=== PATIENT | male | born 1955 | race Caucasian/White ===

== ENCOUNTER 2018-11-02 19:38 | Inpatient (IN) | payer OTHER, MEDICAID | END 2018-11-04 12:00 | disposition home or self-care (01) | LOC: ED HOLD 23:26 → ER 19:38 → ORTHO 4S 11-03 00:35 ==

== ENCOUNTER 2018-11-08 13:22 | Emergency (ER) | payer MEDICAID, OTHER ==
[~2018-11-08] VITALS: Ht 188 cm; Wt 100.0 kg
[~2018-11-08 13:22] MED LIST: NO HOME MEDS PO
--- NOTE | 2018-11-08 15:29 | NUR ---
Pt given a urinal for UA.
[2018-11-08] MEDS ORDERED: LIDOcaine 2% 10ml TOPICAL JELLY (Urojet) MM ONE (16:05)
[2018-11-08 16:36] LABS: CLARITY,URINE CLEAR (Clear); COLOR,URINE YELLOW (Yellow); GLUCOSE, URINE NEGATIVE (Neg); KETONES,URINE NEGATIVE (Neg); LEUKOCYTE ESTERASE ,URINE NEGATIVE (Neg); NITRITES, URINE NEGATIVE (Neg); OCCULT BLOOD,URINE LARGE (Neg); PH,URINE 6.5 (4.8-8.0); PROTEIN,URINE NEGATIVE (Neg); UROBILINOGEN,URINE 0.2 E.U/dL (0.2-1.0)
[2018-11-08 16:40] LABS: UA COLLECTION TYPE NON-SPECIFIED
[2018-11-08 17:01] LABS: RBC,URINE 20-50 /HPF (0-2); SQUAMOUS EPITHELIAL CELL,UR NONE SEEN /LPF (FEW)
[2018-11-08 17:02] LABS: BACTERIA,URINE NONE SEEN /HPF (Neg); WBC,URINE NONE SEEN /HPF (0-4)
--- NOTE | 2018-11-08 17:40 | NUR ---
PT HAD 600 ML PINK URINE OUTPUT VIA SHAFFER CATHETER, NO CLOTS NOTED IN SHAFFER BAG OR TUBING. PT ASKING FOR PLAN, PUT CHART UP FOR RE-EVAL BY DR NAVARRO
[2018-11-08] MEDS ORDERED: FLO0.4C PO (18:20)
--- NOTE | 2018-11-08 18:50 | NUR ---
FC bedside drainage bad switched for leg back in preparation of dc. pt verbalied understanding of how to drain leg back.
[2018-11-08 18:58] VITALS: BP 149/106
== END 2018-11-08 19:01 | disposition home or self-care (01) ==
LOC: ER 13:23
DX: R33.9 Retention of urine, unspecified (principal); Z86.19 Personal history of other infectious and parasitic diseases; Z98.890 Other specified postprocedural states; Z91.048 Other nonmedicinal substance allergy status
CPT/HCPCS: 51702; 81001; 99284

== ENCOUNTER 2018-11-08 21:37 | Emergency (ER) | payer MEDICAID, OTHER ==
[~2018-11-08] VITALS: Ht 188 cm; Wt 85.2 kg
[~2018-11-08 21:37] MED LIST changes: +FLO0.4C PO
[2018-11-09 01:04] VITALS: BP 125/69
--- NOTE | 2018-11-09 01:04 | NUR ---
patient educated and demonstrated how to irrigate catheter with sterile ns: supplies provided
[2018-11-12] MEDS ORDERED: OPIU1SUP RC (20:28)
[2018-11-12] MEDS ORDERED: SULF1TAB49 PO (20:28)
[2018-11-12] MEDS ORDERED: CIPR-230 PO (20:37)
== END 2018-11-09 01:11 | disposition home or self-care (01) ==
LOC: ER 21:38
DX: T83.098A Other mechanical complication of other urinary catheter, initial encounter (principal); Z98.890 Other specified postprocedural states; Z88.8 Allergy status to other drugs, medicaments and biological substances; Z79.899 Other long term (current) drug therapy; Y92.89 Other specified places as the place of occurrence of the external cause
CPT/HCPCS: 99284

== ENCOUNTER 2019-09-18 06:24 | Inpatient (IN) | payer MEDICAID ==
[2019-09-18] VITALS (9 sets, daily range): BP systolic 122–143; BP diastolic 57–84
[~2019-09-18] VITALS: Ht 188 cm; Wt 107.0 kg
[~2019-09-18 06:24] MED LIST changes: -FLO0.4C PO
[2019-09-18] MEDS ORDERED: ondansetron/PF 4mg/2ml inj IV ONE (07:00)
[2019-09-18] MEDS ORDERED: normal saline 1000ML IV soln IVB ONE (07:00)
[2019-09-18 07:18] LABS: BASOPHILS # (AUTO) 0.1 X10'3 (0-0.2); BASOPHILS % (AUTO) 0.9 % (0-1); EOSINOPHILS # (AUTO) 0.2 X10'3 (0-0.9); EOSINOPHILS % (AUTO) 2.6 % (0-6); HEMOGLOBIN 13.9 g/dl (14.0-17.9); LYMPHOCYTES % (AUTO) 23.6 % (21-51); MEAN CORPUSCULAR HEMOGLOBIN 30.5 PG (27.0-31.0); MEAN CORPUSCULAR VOLUME 89.8 FL (78-98); MEAN PLATELET VOLUME 8.5 FL (7.4-10.4); MONOCYTES # (AUTO) 0.6 X10'3 (0-0.9); MONOCYTES % (AUTO) 6.8 % (2-12); NEUTROPHILS # (AUTO) 5.6 X10'3 (1.8-7.7); NEUTROPHILS % (AUTO) 66.1 % (42-75); PLATELET COUNT 197 X10'3 (140-440); RED BLOOD COUNT 4.56 X10'6 (4.70-6.10); RED CELL DISTRIBUTION WIDTH 13.8 % (11.5-14.5); WHITE BLOOD COUNT 8.5 X10'3 (4.5-11.0)
[2019-09-18] MEDS: morphine 4 MG/ML inj SYRINge IV PRN ×2 (07:24→08:10)
--- NOTE | 2019-09-18 07:29 | NUR ---
PT'S HR NOTED TO BE IN THE [place] 40'S (47-49), DR ZARAGOZA NOTIFIED
[2019-09-18 07:35] LABS: ALANINE AMINOTRANSFERASE 12 U/L (12-78); ALBUMIN 3.3 G/DL (3.4-5.0); ALBUMIN/GLOBULIN RATIO 0.9 (1.1-1.5); ALKALINE PHOSPHATASE 104 IU/L (46-116); ANION GAP 9 (8-16); ASPARTATE AMINO TRANSFERASE 19 U/L (10-37); BILIRUBIN,TOTAL 0.3 MG/DL (0.1-1.0); BLOOD UREA NITROGEN 16 MG/DL (7-18); BUN/CREATININE RATIO 13.7 (5.4-32.0); CALCIUM 8.6 MG/DL (8.5-10.1); CHLORIDE 108 MMOL/L (99-107); CREATININE 1.17 MG/DL (0.60-1.10); GLUCOSE 144 MG/DL (70-104); LIPASE 122 U/L (73-393); POTASSIUM 3.7 MMOL/L (3.5-5.1); SODIUM 141 MMOL/L (135-145); TOTAL CARBON DIOXIDE 24.2 MMOL/L (24-32); eGFR 63 ML/MIN
[2019-09-18] MEDS ORDERED: LORazepam 2 mg/ml vial IV ONE (07:50)
[2019-09-18] MEDS ORDERED: acetaminophen 325mg tablet PO PRN ×2 (08:25)
[2019-09-18] MEDS ORDERED: potassium Cl 20 mEq SR tablet PO PRN ×2 (08:25)
[2019-09-18] MEDS ORDERED: magnesium hydroxide 30ml (MOM) UD suspension PO PRN (08:25)
[2019-09-18] MEDS ORDERED: morphine 2 MG/ML inj. syringe IV PRN ×2 (08:25)
[2019-09-18] MEDS ORDERED: ondansetron/PF 4mg/2ml inj IV PRN (08:25)
[2019-09-18] MEDS ORDERED: mag hydrox/Alum hydrox/simeth 30ml oral suspension PO PRN (08:25)
[2019-09-18] MEDS ORDERED: nitroGLYCERIN 0.4mg SUBLingual tab SL PRN (08:25)
[2019-09-18] MEDS ORDERED: magnesium 2GM in 50ml NS 50 ML IV PRN (08:25)
[2019-09-18] MEDS ORDERED: acetaminophen 650mg rectal suppository RC PRN (08:25)
[2019-09-18] MEDS ORDERED: metoprolol tartrate 1mg/ml inj IV PRN (08:25)
[2019-09-18] MEDS ORDERED: aminophylline 250mg/10ml inj. IV PRN (08:25)
[2019-09-18] MEDS ORDERED: HYDROcodone/acetaminophen 10/325mg tab PO PRN (08:25)
[2019-09-18] MEDS ORDERED: magnesium 4gm in 100ml NS 100 ML IV PRN (08:25)
[2019-09-18] MEDS ORDERED: regadenoson 0.4mg/5ml syringe IV PRN (08:25)
[2019-09-18] MEDS ORDERED: diphenhydrAMINE 25mg capsule PO PRN (08:25)
[2019-09-18] MEDS ORDERED: potassium CL 10mEq/100ml bag 100 ML IV PRN ×2 (08:25)
[2019-09-18] MEDS ORDERED: HYDROcodone/acetaminophen 5mg/325mg tablet PO PRN (08:25)
[2019-09-18] MEDS ORDERED: bisacodyl 10mg suppository rectal RC PRN (08:25)
[2019-09-18] MEDS ORDERED: magnesium Cl slow-release 64mg tablet PO PRN (08:25)
[2019-09-18] MEDS ORDERED: aspirin 325mg tablet PO ONE (08:35)
[2019-09-18 08:54] LABS: HEMOGLOBIN A1C 6.2 % (4.5-6.2)
[2019-09-18] MEDS ORDERED: ACET-1008 PO (09:37)
--- NOTE | 2019-09-18 10:05 | NUR ---
Patient arrived via gurney. Alert and oriented, able to communicate needs. C/o 5/10 chest pain with deep breathing. Patient in bed, at bedside. Will continue to monitor.
[2019-09-18] MEDS: normal saline 1000ml 1,000 ML IV SCH ×2 (10:15→21:16)
[2019-09-18] MEDS ORDERED: iohexol 350MG/ML 100ml bottle IV ONE (14:51)
--- NOTE | 2019-09-18 18:25 | NUR ---
Patient in room PCU 3012. I have received report from Kamila HAMILTON and had the opportunity to ask questions and assume patient care.
[2019-09-18] MEDS: K and/or MAG REPLACEMENT MC SCH (19:34)
[2019-09-18] MEDS: heparin, porcine 5000 units/ml vial SQ SCH (19:38)
[2019-09-18] MEDS: nicotine 7mg patch - 24hr TD SCH (21:18)
[2019-09-19 02:00] VITALS: BP 126/58
[2019-09-19] MEDS: normal saline 1000ml 1,000 ML IV SCH (04:24)
[2019-09-19 05:22] LABS: BASOPHILS % (AUTO) 0.4 % (0-1); EOSINOPHILS # (AUTO) 0.1 X10'3 (0-0.9); EOSINOPHILS % (AUTO) 1.4 % (0-6); HEMATOCRIT 38.4 % (42.0-52.0); LYMPHOCYTES # (AUTO) 1.9 X10'3 (1.1-4.8); LYMPHOCYTES % (AUTO) 23.8 % (21-51); MEAN CORPUSCULAR HEMOGLOBIN 30.5 PG (27.0-31.0); MEAN CORPUSCULAR VOLUME 89.7 FL (78-98); MEAN PLATELET VOLUME 8.8 FL (7.4-10.4); MONOCYTES # (AUTO) 0.9 X10'3 (0-0.9); MONOCYTES % (AUTO) 11.6 % (2-12); NEUTROPHILS # (AUTO) 5.1 X10'3 (1.8-7.7); NEUTROPHILS % (AUTO) 62.8 % (42-75); PLATELET COUNT 170 X10'3 (140-440); RED BLOOD COUNT 4.29 X10'6 (4.70-6.10); RED CELL DISTRIBUTION WIDTH 13.9 % (11.5-14.5); WHITE BLOOD COUNT 8.1 X10'3 (4.5-11.0)
[2019-09-19 05:46] LABS: ALANINE AMINOTRANSFERASE 10 U/L (12-78); ALBUMIN 2.9 G/DL (3.4-5.0); ALBUMIN/GLOBULIN RATIO 0.8 (1.1-1.5); ALKALINE PHOSPHATASE 90 IU/L (46-116); ANION GAP 6 (8-16); ASPARTATE AMINO TRANSFERASE 14 U/L (10-37); BILIRUBIN,TOTAL 0.7 MG/DL (0.1-1.0); BLOOD UREA NITROGEN 13 MG/DL (7-18); BUN/CREATININE RATIO 11.5 (5.4-32.0); CALCIUM 8.6 MG/DL (8.5-10.1); CHLORIDE 106 MMOL/L (99-107); CHOL/HDL RATIO 4.3 (0.00-4.99); CHOLESTEROL 187 MG/DL (0-200); CREATININE 1.13 MG/DL (0.60-1.10); GLUCOSE 92 MG/DL (70-104); HDL CHOLESTEROL 43 MG/DL (35-60); LDL CHOLESTEROL 134 MG/DL (50-100); MAGNESIUM 1.6 MG/DL (1.5-2.4); PHOSPHORUS 2.9 MG/DL (2.3-4.5); POTASSIUM 3.9 MMOL/L (3.5-5.1); SODIUM 139 MMOL/L (135-145); TOTAL CARBON DIOXIDE 26.6 MMOL/L (24-32); TOTAL PROTEIN 6.6 G/DL (6.4-8.2); TRIGLYCERIDES 39 MG/DL (20-135); eGFR 66 ML/MIN
--- NOTE | 2019-09-19 06:09 | NUR ---
Problems reprioritized. Patient report given, questions answered & plan of care reviewed with Kamila HAMILTON.
[2019-09-19 06:56] VITALS: BP 120/71
[2019-09-19] MEDS: heparin, porcine 5000 units/ml vial SQ SCH (07:13)
[2019-09-19] MEDS: K and/or MAG REPLACEMENT MC SCH (07:13)
[2019-09-19] MEDS: nicotine 7mg patch - 24hr TD SCH (07:49)
[2019-09-19] MEDS ORDERED: aspirin 325mg tablet PO SCH (08:30)
[2019-09-19 11:00] VITALS: BP 118/65
--- NOTE | 2019-09-19 12:58 | NUR ---
Patient stable for discharge per MD. Discharge instructions given to patient and . No new medications. Patient refused to have follow up appointment scheduled with Dr. Hankins. PIV d/c'd catheter intact. Tele monitor removed and retuned to [facility]. All belongings sent with patient. Patient ambulated off unit without difficulty.
[2019-09-20] MEDS ORDERED: aspirin 81mg tablet.DR PO SCH (08:30)
== END 2019-09-19 12:37 | disposition home or self-care (01) | DRG 203 ==
LOC: ER 06:25 → ED HOLD 08:24 → PCU 3S 10:05 → OBSVTOIN 09-19 08:00
PROVIDERS: ADMIT Family Medicine; ATTEND Family Medicine
PROC: 4A02XM4 Measurement of Cardiac Total Activity, External Approach (ICD-10-PCS; principal; 2019-09-18)
PROC: 3E033HZ Introduction of Radioactive Substance into Peripheral Vein, Percutaneous Approach (ICD-10-PCS; 2019-09-18)
DX: R07.89 Other chest pain (principal); B19.20 Unspecified viral hepatitis C without hepatic coma; F17.210 Nicotine dependence, cigarettes, uncomplicated; G47.33 Obstructive sleep apnea (adult) (pediatric); I10 Essential (primary) hypertension; R00.1 Bradycardia, unspecified; Z80.0 Family history of malignant neoplasm of digestive organs; Z82.3 Family history of stroke; Z82.49 Family history of ischemic heart disease and other diseases of the circulatory system; Z85.528 Personal history of other malignant neoplasm of kidney; Z90.5 Acquired absence of kidney; Z88.2 Allergy status to sulfonamides; Z79.899 Other long term (current) drug therapy; Z71.6 Tobacco abuse counseling
CPT/HCPCS: 36415; 71045; 71275; 76700; 78452; 80053; 80061; 83036; 83690; 83735; 84100; 84443; 84484; 85025; 87081; 93005; 93017; 93306; 96374; 99285; A9500; G0378; J1644; J2060; J2270; J2405; J7030; Q9967

== ENCOUNTER 2020-02-26 09:51 | Emergency (ER) | payer MEDICAID ==
[~2020-02-26] VITALS: Ht 188 cm; Wt 116.4 kg
[~2020-02-26 09:51] MED LIST changes: +ACET-1008 PO; -NO HOME MEDS PO
[2020-02-26 10:16] LABS: BASOPHILS # (AUTO) 0.1 X10'3 (0-0.2); BASOPHILS % (AUTO) 1.3 % (0-1); EOSINOPHILS # (AUTO) 0.2 X10'3 (0-0.9); EOSINOPHILS % (AUTO) 3.6 % (0-6); HEMATOCRIT 44.6 % (42.0-52.0); HEMOGLOBIN 14.9 g/dl (14.0-17.9); LYMPHOCYTES # (AUTO) 1.6 X10'3 (1.1-4.8); LYMPHOCYTES % (AUTO) 28.5 % (21-51); MEAN CORPUSCULAR HEMOGLOBIN 30.7 PG (27.0-31.0); MEAN CORPUSCULAR HGB CONC 33.3 g/dL (33.0-36.5); MEAN PLATELET VOLUME 8.6 FL (7.4-10.4); MONOCYTES # (AUTO) 0.5 X10'3 (0-0.9); MONOCYTES % (AUTO) 8.8 % (2-12); NEUTROPHILS # (AUTO) 3.2 X10'3 (1.8-7.7); NEUTROPHILS % (AUTO) 57.8 % (42-75); PLATELET COUNT 194 X10'3 (140-440); RED BLOOD COUNT 4.84 X10'6 (4.70-6.10); RED CELL DISTRIBUTION WIDTH 13.7 % (11.5-14.5); WHITE BLOOD COUNT 5.5 X10'3 (4.5-11.0)
[2020-02-26 10:30] LABS: ALANINE AMINOTRANSFERASE 17 U/L (12-78); ALBUMIN 3.7 G/DL (3.4-5.0); ALBUMIN/GLOBULIN RATIO 0.8 (1.1-1.5); ALKALINE PHOSPHATASE 105 IU/L (46-116); ANION GAP 10 (8-16); ASPARTATE AMINO TRANSFERASE 19 U/L (10-37); BILIRUBIN,TOTAL 0.4 MG/DL (0.1-1.0); BLOOD UREA NITROGEN 16 MG/DL (7-18); BUN/CREATININE RATIO 14.5 (5.4-32.0); CALCIUM 8.8 MG/DL (8.5-10.1); CHLORIDE 104 MMOL/L (99-107); GLUCOSE 86 MG/DL (70-104); POTASSIUM 4.5 MMOL/L (3.5-5.1); SODIUM 137 MMOL/L (135-145); TOTAL CARBON DIOXIDE 22.8 MMOL/L (24-32); TOTAL PROTEIN 8.5 G/DL (6.4-8.2); eGFR 68 ML/MIN
[2020-02-26 10:48] VITALS: BP 126/84
== END 2020-02-26 11:17 | disposition home or self-care (01) ==
LOC: ER 09:54
DX: R00.2 Palpitations (principal); I10 Essential (primary) hypertension; F17.200 Nicotine dependence, unspecified, uncomplicated; Z85.528 Personal history of other malignant neoplasm of kidney; Z86.19 Personal history of other infectious and parasitic diseases; Z98.890 Other specified postprocedural states; Z90.5 Acquired absence of kidney; Z88.8 Allergy status to other drugs, medicaments and biological substances; Z88.2 Allergy status to sulfonamides; Z79.899 Other long term (current) drug therapy
CPT/HCPCS: 36415; 71045; 80053; 83880; 84484; 85025; 93005; 99285

== ENCOUNTER 2024-10-27 09:31 | Emergency (ER) | payer MEDICARE, MEDICAID ==
[~2024-10-27] VITALS: Ht 188 cm; Wt 100.0 kg
[2024-10-27 09:41] VITALS: BP 151/61; PULSE 56; RESP 18; O2SAT 99
[2024-10-27] MEDS: LIDOcaine 1% W/epiNEPHrine 1:100,000 20ml vial SQ ONE (10:14)
[2024-10-27] MEDS ORDERED: HYDR-3965 PO (11:22)
[2024-10-27] MEDS ORDERED: CEPH-585 PO (11:22)
[2024-10-27 12:52] VITALS: TEMP 98.8
== END 2024-10-27 12:54 | disposition home or self-care (01) ==
LOC: ER 09:32
DX: L02.212 Cutaneous abscess of back [any part, except buttock and flank] (principal); I10 Essential (primary) hypertension; Z88.2 Allergy status to sulfonamides; Z88.6 Allergy status to analgesic agent; Z79.1 Long term (current) use of non-steroidal anti-inflammatories (NSAID); Z79.2 Long term (current) use of antibiotics
CPT/HCPCS: 10060; 99283; A6266; A6402; Z7610; A6449

== ENCOUNTER 2024-10-29 13:02 | Emergency (ER) | payer MEDICARE, MEDICAID ==
[~2024-10-29] VITALS: Ht 188 cm; Wt 102.0 kg
[~2024-10-29 13:02] MED LIST changes: +CEPH-585 PO; +HYDR-3965 PO
[2024-10-29 13:54] VITALS: BP 31/90
[2024-10-30 01:04] VITALS: PULSE 71; RESP 18; TEMP 97.6; O2SAT 99
== END 2024-10-29 16:12 | disposition home or self-care (01) ==
LOC: ER 13:03
DX: T81.49XA Infection following a procedure, other surgical site, initial encounter (principal); I10 Essential (primary) hypertension; Z88.2 Allergy status to sulfonamides; Z98.890 Other specified postprocedural states; Y92.89 Other specified places as the place of occurrence of the external cause
CPT/HCPCS: 99281; A6402; A6449